=== PATIENT | female | born 1955 | race Caucasian/White ===

== ENCOUNTER → 2017-10-21 | Outpatient (CLI) | payer OTHER ==
[~2017-10-21] MED LIST: ACET-24 PO; ACET1TAB84 PO; ASPI-320 PO; BCPILLS PO; CLB200 PO; MELO-83 PO; POLY99.02 OP; RXC5 PO; TRAM-10 PO
[2017-10-21 09:37] LABS: BASO % 0.2 %; BASO ABS # 0.01 K/uL (0-0.2); EOS % 1.2 %; EOS ABS # 0.07 K/uL (0-0.5); HEMATOCRIT 40.7 % (37-47); HEMOGLOBIN 13.4 g/dL (12.0-16.0); IG# 0.01 K/uL (0.00-0.02); LYMPH % 32.6 %; LYMPH ABS # 1.84 K/uL (1.2-3.4); MEAN CELL VOLUME 93.8 fL (80-100); MEAN CORPUSCULAR HEMOGLOBIN 30.9 pg (25-34); MEAN CORPUSCULAR HGB CONC 32.9 g/dl (32-36); MEAN PLATELET VOLUME 10.4 fL (7.4-10.4); MONO % 11.9 %; MONO ABS # 0.67 K/uL (0.11-0.59); NEUT % 53.9 %; NEUT ABS # 3.05 K/uL (1.4-6.5); PLATELET COUNT 277 K/uL (130-400); RED CELL DISTRIBUTION WIDTH CV 13.1 % (11.5-14.5); RED CELL DISTRIBUTION WIDTH SD 45.3 fL (36.4-46.3); WHITE BLOOD COUNT 5.65 K/uL (4.8-10.8)
[2017-10-21 09:55] LABS: HEMOGLOBIN A1C 5.1 % (4.5-5.6)
[2017-10-21 10:23] LABS: BLOOD UREA NITROGEN 15 mg/dl (7-18); CALCIUM 8.8 mg/dl (8.5-10.1); CARBON DIOXIDE 27 mmol/L (21-32); CREATININE 0.66 mg/dl (0.60-1.20); GLUCOSE 84 mg/dl (70-99); SODIUM 140 mmol/L (136-145)
[2017-10-21 10:34] LABS: CHOLESTEROL 167 mg/dl (0-200); LDL CHOLESTEROL CALCULATED 69 mg/dl
== END | disposition home or self-care (01) ==
LOC: C.LAB1850 07:02
PROVIDERS: ATTEND Physician Assistant
DX: Z00.00 Encounter for general adult medical examination without abnormal findings (principal); D86.9 Sarcoidosis, unspecified; R73.9 Hyperglycemia, unspecified

== ENCOUNTER → 2017-10-26 | Outpatient (CLI) | payer OTHER ==
[~2017-10-26] MED LIST changes: -ACET-24 PO; -ACET1TAB84 PO; -ASPI-320 PO; -CLB200 PO; -MELO-83 PO; -RXC5 PO; -TRAM-10 PO
--- NOTE | 2017-10-26 15:31 | MAMMOGRAPHY REPORT ---
BILATERAL DIGITAL SCREENING MAMMOGRAM WITH CAD: 10/26/2017 CLINICAL HISTORY: Routine screening. Patient has no complaints. TECHNIQUE: Bilateral CC and MLO views of the breasts with and without implant displacement views were obtained. Current study was also evaluated with a Computer Aided Detection (CAD) system. COMPARISON: Comparison is made to exams dated: 05/10/2016 mammogram, 03/03/2015 mammogram, 10/12/2013 mammogram, 11/12/2010 mammogram, 11/11/2009 mammogram - [facility], and 06/07/2007. BREAST COMPOSITION: There are scattered areas of fibroglandular density in both breasts. FINDINGS: Bilateral subpectoral saline implants are intact. No suspicious mass, architectural disto rtion or cluster of suspicious microcalcifications is seen. IMPRESSION: ACR BI-RADS CATEGORY 1: NEGATIVE There is no mammographic evidence of malignancy. A 1 year screening mammogram is recommended. The pa tient will receive written notification of the results. Approximately 10% of breast cancers are not detected with mammography. A negative mammographic report should not delay biopsy if a clinically suggestive mass is present. Lidia Martinez M.D. ay/:10/26/2017 13:46:49 Hyperbaric Nurse: Jennifer Kelly RT(R)(M), [facility] letter sent: Normal 1/2 BI-RADS Code: ACR BI-RADS Category 1: Negative
== END | disposition home or self-care (01) ==
LOC: C.MAMM 12:34
PROVIDERS: ATTEND Obstetrics & Gynecology
DX: Z12.31 Encounter for screening mammogram for malignant neoplasm of breast (principal); Z98.82 Breast implant status

== ENCOUNTER 2018-02-02 05:07 | Inpatient (IN) | payer OTHER ==
[2018-01-06 11:44] VITALS: BMI 34.0
--- NOTE | 2018-01-06 12:11 | PAT Medication Instructions ---
Service Date Jan 06, 2018. Current Home Medication List Acetaminophen (Tylenol Arthritis Ext Rel), 2 TAB PO QAM Meloxicam (Meloxicam), 1 TAB PO QAM Tramadol (Ultram), 25-50 MG PO UD PRN for Pain Medication Instructions For Your Scheduled Surgery - Hold the following medications 7 days prior to surgery per surgeon: Meloxicam (Meloxicam), 1 TAB PO QAM - Take the following medications the morning of surgery with a sip of water: Acetaminophen (Tylenol Arthritis Ext Rel), 2 TAB PO QAM (okay to take up to 4 hours prior to surgery if needed) Tramadol (Ultram), 25-50 MG PO UD PRN for Pain(okay to take up to 4 hours prior to surgery if needed) - Take the following medications as scheduled the night before surgery: Tramadol (Ultram), 25-50 MG PO UD PRN for Pain (if needed) If you have any questions please call us at [phone] or [phone] or [phone]
--- NOTE | 2018-01-06 12:39 | DIAGNOSTIC IMAGING REPORT ---
CHEST 2 VIEWS ROUTINE HISTORY: 62 years-old Female PAT preoperative exam. No acute chest complaints COMPARISON: Radiographs 03/14/2007 TECHNIQUE: PA and lateral views of the chest FINDINGS: Cardiomediastinal and hilar silhouettes are within normal limits. No pneumothorax, pleural effusion, focal airspace consolidation or overt pulmonary edema. Bilateral breast augmentation devices are noted. Bones of the chest appear grossly intact. IMPRESSION: No acute process. The above report was generated using voice recognition software. It may contain grammatical, syntax or spelling errors. Electronically signed by: Ike Avila M.D. 01/06/2018 12:38 PM Dictated Date/Time: 01/06/2018 12:36 PM
[2018-01-06 12:44] LABS: BASO % 0.1 %; BASO ABS # 0.01 K/uL (0-0.2); EOS % 0.9 %; EOS ABS # 0.06 K/uL (0-0.5); HEMATOCRIT 39.1 % (37-47); HEMOGLOBIN 13.2 g/dL (12.0-16.0); IG# 0.01 K/uL (0.00-0.02); LYMPH % 37.4 %; MEAN CELL VOLUME 91.4 fL (80-100); MEAN CORPUSCULAR HEMOGLOBIN 30.8 pg (25-34); MEAN CORPUSCULAR HGB CONC 33.8 g/dl (32-36); MONO % 7.6 %; MONO ABS # 0.53 K/uL (0.11-0.59); NEUT % 53.9 %; NEUT ABS # 3.74 K/uL (1.4-6.5); PLATELET COUNT 274 K/uL (130-400); RED CELL DISTRIBUTION WIDTH CV 13.5 % (11.5-14.5); RED CELL DISTRIBUTION WIDTH SD 44.5 fL (36.4-46.3); WHITE BLOOD COUNT 6.95 K/uL (4.8-10.8)
[2018-01-06 12:59] LABS: PTT PATIENT 26.6 SECONDS (21.0-31.0)
[2018-01-06 13:25] LABS: HEMOGLOBIN A1C 5.2 % (4.5-5.6)
[2018-01-06 13:45] LABS: ALBUMIN 3.5 gm/dl (3.4-5.0); CALCIUM 9.4 mg/dl (8.5-10.1); CREATININE 0.73 mg/dl (0.60-1.20); POTASSIUM 4.5 mmol/L (3.5-5.1)
--- NOTE | 2018-01-12 12:00 | HISTORY & PHYSICAL EXAMINATION ---
DATE OF ADMISSION: 02/02/2018 CHIEF COMPLAINT: Right hip pain. HISTORY OF PRESENT ILLNESS: Ms. Soler is a 62-year-old female with a multiple year history of right hip pain. The patient rates her pain a 6/10 and complains of loss of function. She has pain with her daily activities. She has limited standing and walking tolerance. Pain is worse with weightbearing. The patient has had NSAIDS AND injections in the past without relief. She has failed conservative treatment and is scheduled for right hip replacement. PAST MEDICAL HISTORY: Osteoarthritis and sarcoidosis in remission. She denies heart disease, diabetes or DVT. PAST SURGICAL HISTORY: Breast implants in 1998. SOCIAL HISTORY: The patient denies alcohol or tobacco use. She lives in a 2-abram home. She currently works in real estate. FAMILY HISTORY: Negative for DVT. MEDICATIONS: Mobic 15 mg and tramadol 50 mg p.r.n. ALLERGIES: CODEINE. REVIEW OF SYSTEMS: See HPI. Ten other systems reviewed, all negative. PHYSICAL EXAMINATION: VITAL SIGNS: Height 5 feet 5 inches, weight 212 pounds, and BMI 32. GENERAL: This is a well-developed, well-nourished female who is alert and oriented x3. Mood and affect are appropriate. HEENT: Normocephalic, atraumatic. Mucous membranes are moist and intact. NECK: Supple without lymphadenopathy. HEART: Regular rate and rhythm without murmurs, rubs or gallops. LUNGS: Clear to auscultation without wheezes or rhonchi. ABDOMEN: Soft and nontender. Bowel sounds are equal and active. EXTREMITIES: No ecchymosis, redness or warmth. Thigh and calf are soft and nontender. She has decreased range of motion. Range of motion reproduces pain in the groin. She is neurovascularly intact with +5/5 strength. X-RAY EXAMINATION: AP and lateral views show joint space narrowing and osteophyte formation. IMPRESSION: Degenerative joint disease, right hip. PLAN: The patient will be admitted for a right total hip arthroplasty. We will plan on aspirin for DVT prophylaxis. The patient will have [facility] for home physical therapy.
[~2018-02-02] VITALS: Ht 167.6 cm; Wt 96.5 kg
[2018-02-02] VITALS (11 sets, daily range): BP systolic 112–153; BP diastolic 68–96; PULSE 70–93; TEMP 36.4–37.3; O2SAT 95–100; Ht 167.6 cm; Wt 96.5 kg
[~2018-02-02 05:07] MED LIST changes: +ACET1TAB84 PO; -BCPILLS PO; +MELO-83 PO; -POLY99.02 OP; +TRAM-10 PO
[2018-02-02] MEDS ORDERED: FAMOTIDINE 20 MG TAB PO SCH (06:00)
[2018-02-02] MEDS ORDERED: ROPIVACAINE 5MG/ML 30 ML 150 MG, BUPIVACAINE 0.5% MPF INJ 30 ML, EpINEphrine HCL INJ 0.... INFIL SCH ×8 (06:00)
[2018-02-02] MEDS ORDERED: ACETAMINOPHEN 500 MG TAB PO SCH (06:00)
[2018-02-02] MEDS ORDERED: CeleBREX 200 MG CAP PO SCH (06:00)
[2018-02-02] MEDS ORDERED: METOCLOPRAMIDE HCL 10 MG TAB PO SCH (06:00)
[2018-02-02] MEDS ORDERED: GABAPENTIN 600 MG PO SCH (06:00)
[2018-02-02] MEDS ORDERED: LACTATED RINGER'S 1000ML 500 ML IV SCH (06:00)
[2018-02-02] MEDS ORDERED: CEFAZOLIN 2000MG IV PUSH 15 ML IV SCH (06:00)
[2018-02-02] MEDS ORDERED: LACTATED RINGER'S 1000ML 1,000 ML IV SCH (06:00)
[2018-02-02] MEDS ORDERED: DEXAMETHASONE 4 MG TAB PO SCH (06:00)
[2018-02-02] MEDS ORDERED: BACITRACIN 50000 UNIT VIAL ONE (06:27)
[2018-02-02] MEDS ORDERED: POVIDONE-IODINE OP SOLN 30 ML BTL ONE (06:27)
[2018-02-02] MEDS ORDERED: ORTHO JOINT ANESTHETIC ONE (06:27)
[2018-02-02] MEDS: TRANEXAMIC ACID INJ 1,000 MG x 2 Bags IV SCH ×4 (06:29→10:33)
[2018-02-02] MEDS ORDERED: BUPIVACAINE 0.5 % 5 MG/1 ML PF 10ML VIAL ONE (06:33)
[2018-02-02] MEDS ORDERED: MIDAZOLAM HCL 1 MG/ML 2ML VIAL ONE ×2 (06:37)
[2018-02-02] MEDS ORDERED: FENTANYL CITRATE INJ 50 MCG/1 ML 2 ML VIAL ONE (06:38)
--- NOTE | 2018-02-02 06:53 | History & Physical Bridge Note ---
H&P Re-Evaluation Bridge Note: I have examined the patient, reviewed the History & Physical and in the interval since the performance of the History & Physical I have noted the following changes of clinical significance: No changes noted
[2018-02-02] MEDS ORDERED: EpHEDrine SULFATE 50MG/5ML SYR ONE (07:43)
[2018-02-02] MEDS ORDERED: PHENYLEPHRINE 100MCG/ML 5ML SYR ONE (07:43)
[2018-02-02] MEDS ORDERED: LIDOCAINE HCL 2% 2 ML VIAL (20MG/ML) ONE (07:43)
[2018-02-02] MEDS ORDERED: ONDANSETRON INJ 2 MG/ML 2 ML VIAL ONE (07:44)
[2018-02-02] MEDS ORDERED: PROPOFOL IV EMULSION 10 MG/ML 20 ML VIAL IV ONE (07:44)
--- NOTE | 2018-02-02 08:10 | [facility] Post Operative Brief Note ---
Immediate Operative Summary Operative Date Feb 02, 2018. Pre-Operative Diagnosis Right hip degenerative joint disease Post-Operative Diagnosis Right hip degenerative joint disease Procedure(s) Performed Right total hip arthroplasty, uncemented Surgeon Dr. Causey Load Blocker Surgeon(s) Edgard Watson PA-C Estimated Blood Loss 100cc Findings Consistent with Post-Op Diagnosis Specimens A: Right femoral head Drains None Anesthesia Type MAC Spinal Regional Complication(s) none Disposition Accompanied Pt To Recover: no Disposition: Recovery Room / PACU
[2018-02-02] MEDS ORDERED: METOCLOPRAMIDE HCL INJ 5 MG/ML 2 ML VIAL IV PRN (08:45)
[2018-02-02] MEDS ORDERED: ONDANSETRON INJ 2 MG/ML 2 ML VIAL IV PRN (08:45)
[2018-02-02] MEDS ORDERED: ALUMINUM/MAGNESIUM/SIMETH (MAALOX MAX) 30 ML UDC PO PRN (08:45)
[2018-02-02] MEDS ORDERED: CEFAZOLIN IV 2,000 MG in DEXTROSE 5% 50ML 50 ML IV SCH (08:45)
[2018-02-02] MEDS ORDERED: ZOLPIDEM TARTRATE 5 MG TAB PO PRN (08:45)
[2018-02-02] MEDS ORDERED: EpHEDrine SULFATE INJ 50 MG/ML AMP IV PRN (08:45)
[2018-02-02] MEDS ORDERED: MoRPHine SULFATE 4 MG/ML 1 ML CARP\\VIAL IV PRN (08:45)
[2018-02-02] MEDS ORDERED: TRAMADOL HCL 50 MG TAB PO PRN (08:45)
[2018-02-02] MEDS ORDERED: ATROPINE SULFATE 0.1 MG/ML 5ML SYR IV PRN (08:45)
[2018-02-02] MEDS ORDERED: MAGNESIUM HYDROXIDE SUSP 30 ML UDC PO PRN (08:45)
--- NOTE | 2018-02-02 09:11 | Anesthesiology Progress Note ---
Anesthesia Post Op Note Date & Time Feb 02, 2018 at 09:10 Vital Signs Pain Intensity: 0 Vital Signs Past 12 Hours Date Time Temp Pulse Resp B/P (MAP) Pulse Ox O2 Delivery O2 Flow Rate FiO2 02/02/18 09:01 137/67 02/02/18 08:58 88 15 96 02/02/18 08:58 91 15 02/02/18 08:56 106/66 02/02/18 08:53 97 16 02/02/18 08:53 99 16 98 02/02/18 08:51 127/63 02/02/18 08:48 97 21 02/02/18 08:48 98 21 99 02/02/18 08:46 107/60 02/02/18 08:43 89 18 118/67 99 02/02/18 08:43 93 18 02/02/18 08:43 36.6 104 16 118/67 98 Oxymask 10 02/02/18 05:46 37.3 75 18 144/96 98 Room Air Notes Mental Status: alert / awake / arousable, participated in evaluation Pt Amnestic to Procedure: Yes Nausea / Vomiting: adequately controlled Pain: adequately controlled Airway Patency, RR, SpO2: stable & adequate BP & HR: stable & adequate Hydration State: stable & adequate Neuraxial Anesthesia: was administered, sensory block is resolving Anesthetic Complications: no major complications apparent
--- NOTE | 2018-02-02 09:59 | DIAGNOSTIC IMAGING REPORT ---
R PELVIS/UNILATERAL HIP 1 VIEW CLINICAL HISTORY: IN PACU - A/P PELVIS and LATERAL HIP INCLUDING ALL OF IMPLANT postoperative evaluation COMPARISON: None. DISCUSSION: Anatomic alignment post right total hip arthroplasty. Good contact between prosthetic and underlying bone. Surgical drains are in position. Expected soft tissue postoperative change. IMPRESSION: Anatomic alignment posttotal right hip arthroplasty. The above report was generated using voice recognition software. It may contain grammatical, syntax or spelling errors. Electronically signed by: Sacha Rosario M.D. 02/02/2018 9:58 AM Dictated Date/Time: 02/02/2018 9:58 AM
[2018-02-02] MEDS: DOCUSATE SODIUM 100 MG CAP PO SCH ×2 (10:41→21:12)
[2018-02-02] MEDS: D5W AND 1/2NSS + 20MEQ KCL 1,000 ML IV SCH ×2 (10:42→21:14)
[2018-02-02] MEDS: MULTIVITAMIN TAB PO SCH (10:42)
[2018-02-02] MEDS: PANTOprazole SOD 40 MG TAB PO SCH (10:42)
[2018-02-02] MEDS: OXYCODONE HCL IR 5 MG TAB (IMMEDIATE RELEASE) PO PRN ×2 (10:58→21:55)
[2018-02-02] MEDS: FERROUS GLUCONATE 324 MG TAB PO SCH ×2 (11:39→18:25)
[2018-02-02] MEDS: KETOROLAC TROMETHAMINE 30 MG/ML VIAL IV. SCH ×2 (11:40→18:25)
--- NOTE | 2018-02-02 12:43 | OPERATIVE REPORT ---
DATE OF OPERATION: 02/02/2018 PREOPERATIVE DIAGNOSIS: Osteoarthritis, right hip. POSTOPERATIVE DIAGNOSIS: Osteoarthritis, right hip. PROCEDURE: Right total hip arthroplasty. SURGEON: Cameron Causey MD CLIENT ADVOCATE: Edgard Watson PA-C. ANESTHESIA: COMPLICATIONS: None. IMPLANTS: Acetabular reamer used 52, acetabular shell 52, 36 inner diameter, femoral head 0+36 ceramic, femoral stem 3. PROCEDURE: Following induction of adequate anesthesia, the patient was placed in left lateral decubitus position and right Norah-Langenbeck incision was made. Subcutaneous tissue was sharply dissected. Electrocautery used for hemostasis. The fascia was incised throughout the length of the wound and a cooper scissor placed beneath the short external rotators. The pyriformis was tagged with #1 Vicryl. The short external rotators were divided from the posterior aspect of the femur using electrocautery. These were swept posteriorly. A T-capsulotomy incision was made and the hip was dislocated using a combination of flexion, adduction, and internal rotation. Exposure of the femoral neck with old-style Hohmann and a blunt Hohmann was carried out and a femoral rasp was utilized as a guide for making the appropriate level femoral neck cut. This bone fragment was removed and reserved on the back table. Next, attention was turned to the acetabulum where bone hook was used to retract the femur while the offset retractors were placed anterior and posteriorly. A double-angled Hohmann was placed in superior and anterior position exposing the acetabulum nicely. Acetabular labrum as well as posterior capsule elements were removed using a long knife and a long pickup. Fovea centralis was cleared of all soft tissue. Sequential reamings were carried up to a 52 and decision was made to proceed with impaction of a 36 inner diameter trabecular metal cup. This was impacted and held using a single 35 mm bone screw. The acetabular liner was placed with 15 of elevated posterior wall in the superior and posterior position. Next, attention was turned to the femoral portion of the case where a Bovie and pickup was used to further clear short external rotators from their insertion on the femur. Box osteotome was used to gain access to the femoral canal and the T-handled rasp and a rattail rasp were used to further open and lateral the canal. Sequentially raspings were carried up to a 3, which gave good fit and fill of the proximal femur. A trial reduction was carried out and a 132 degree femoral neck component was chosen as the size to be used. A 0+36 mm femoral head was impacted into position, +0 head was utilized. The trial reduction was stable in all degrees of rotation with no [id number] impingement. The hip was dislocated. The trial components were removed and the final femoral stem, neck, and femoral head combination were assembled on the back table and impacted into position. Hip was relocated. Range of motion checked once again successful and the wound was irrigated. The pyriformis repaired to the greater trochanter using #1 Vicryl [id number] suture. A Hemovac drain was placed and the fascia was closed using #1 Vicryl, subcutaneous tissue was closed using 0 Dexon, and skin was closed with manoj. Sterile dressing of Adaptic, 4 x 4's, ABDs, and foam tape was applied. The patient tolerated the procedure well. Due to the complex nature of the procedure, the entire surgery was performed with the operational assistance of Edgard Watson PA-C. The surgical supply assistant, under direct supervision, was involved in the actual performance of all aspects of the surgical procedure including hemostasis, tissue retraction and incision, instrument management, patient positioning, and wound closure. I attest to the content of the Intraoperative Record and any orders documented therein. Any exception s are noted below.
[2018-02-02] MEDS: ACETAMINOPHEN 500 MG TAB PO SCH ×2 (13:37→21:13)
[2018-02-02] MEDS: CEFAZOLIN IV 2,000 MG in SYRINGE 0 ML IV SCH ×2 (13:37→22:00)
[2018-02-02] MEDS: ASPIRIN 81 MG ECTAB PO SCH (21:12)
[2018-02-03] MEDS: KETOROLAC TROMETHAMINE 30 MG/ML VIAL IV. SCH ×2 (00:29→06:10)
[2018-02-03 03:37] VITALS: BP 108/68; PULSE 73; TEMP 36.4; O2SAT 99
[2018-02-03 05:24] VITALS: O2SAT 99
[2018-02-03 06:07] LABS: HEMATOCRIT 32.7 % (37-47); HEMOGLOBIN 11.1 g/dL (12.0-16.0); IG# 0.05 K/uL (0.00-0.02); LYMPH % 10.7 %; LYMPH ABS # 1.56 K/uL (1.2-3.4); MEAN CELL VOLUME 89.1 fL (80-100); MEAN CORPUSCULAR HEMOGLOBIN 30.2 pg (25-34); MEAN CORPUSCULAR HGB CONC 33.9 g/dl (32-36); MEAN PLATELET VOLUME 9.7 fL (7.4-10.4); MONO % 8.4 %; MONO ABS # 1.22 K/uL (0.11-0.59); NEUT % 80.6 %; NEUT ABS # 11.74 K/uL (1.4-6.5); PLATELET COUNT 319 K/uL (130-400); RED CELL DISTRIBUTION WIDTH SD 42.6 fL (36.4-46.3); WHITE BLOOD COUNT 14.57 K/uL (4.8-10.8)
[2018-02-03] MEDS: ACETAMINOPHEN 500 MG TAB PO SCH ×3 (06:09→21:10)
[2018-02-03] MEDS: D5W AND 1/2NSS + 20MEQ KCL 1,000 ML IV SCH (06:13)
[2018-02-03 06:42] LABS: CREATININE 0.95 mg/dl (0.60-1.20)
[2018-02-03 06:43] LABS: CALCIUM 8.9 mg/dl (8.5-10.1); POTASSIUM 4.1 mmol/L (3.5-5.1)
[2018-02-03 07:05] VITALS: BP 104/68; PULSE 76; TEMP 36.6; O2SAT 100
[2018-02-03] MEDS ORDERED: DEXAMETHASONE INJ 10 MG in SYRINGE 0 ML IV ONE (07:30)
[2018-02-03] MEDS: FERROUS GLUCONATE 324 MG TAB PO SCH ×3 (07:33→17:40)
--- NOTE | 2018-02-03 07:42 | Orthopedic Progress Note ---
Orthopedic Progress Note Date of Service Feb 03, 2018. Subjective Post OP Day: 1 Reports: feeling well Objective calves soft nontender, N/V intact, dressing C/D/I (Hemovac d/c'd), toes mobile Date Time Temp Pulse Resp B/P (MAP) Pulse Ox O2 Delivery O2 Flow Rate FiO2 02/03/18 05:24 99 Room Air 1.0 98 02/03/18 03:37 36.4 73 16 108/68 (81) 99 Room Air 02/02/18 23:40 98 Room Air 1.0 98 02/02/18 23:02 36.4 70 18 113/71 (85) 98 Room Air 02/02/18 19:39 36.4 79 18 116/73 (87) 97 Room Air 02/02/18 16:00 80 112/68 (83) 02/02/18 16:00 Room Air 02/02/18 15:46 36.4 79 18 100 Room Air 02/02/18 13:02 93 16 147/78 (101) 95 Nasal Cannula 1.0 02/02/18 12:05 85 16 153/78 (103) 97 Room Air 02/02/18 11:01 81 16 120/74 (89) 99 Nasal Cannula 1.0 02/02/18 10:35 80 18 125/75 (92) 98 Nasal Cannula 1.0 02/02/18 10:05 36.8 84 18 123/79 (94) 98 Nasal Cannula 2.0 02/02/18 10:05 98 Nasal Cannula 2.0 02/02/18 10:05 Nasal Cannula 2.0 98 02/02/18 09:33 90 17 96 02/02/18 09:33 93 17 02/02/18 09:31 124/64 02/02/18 09:28 91 16 94 02/02/18 09:28 91 16 02/02/18 09:27 84 17 98 02/02/18 09:27 83 17 02/02/18 09:26 123/64 02/02/18 09:22 86 16 02/02/18 09:22 86 16 98 02/02/18 09:21 125/59 02/02/18 09:17 89 15 98 02/02/18 09:17 90 15 02/02/18 09:16 121/61 4/19/18 09:13 91 16 02/02/18 09:13 92 16 99 02/02/18 09:11 122/70 02/02/18 09:10 36.8 98 Nasal Cannula 2 02/02/18 09:08 89 16 02/02/18 09:08 90 16 98 02/02/18 09:07 87 14 97 02/02/18 09:07 86 14 02/02/18 09:06 115/66 02/02/18 09:02 96 16 98 02/02/18 09:02 96 16 02/02/18 09:01 137/67 02/02/18 08:58 88 15 96 02/02/18 08:58 91 15 02/02/18 08:56 106/66 02/02/18 08:53 97 16 02/02/18 08:53 99 16 98 02/02/18 08:51 127/63 02/02/18 08:48 97 21 02/02/18 08:48 98 21 99 02/02/18 08:46 107/60 02/02/18 08:43 89 18 118/67 99 02/02/18 08:43 93 18 02/02/18 08:43 36.6 104 16 118/67 98 Oxymask 10 Laboratory Results 24 Hours: Test 02/03/18 05:47 White Blood Count 14.57 K/uL Red Blood Count 3.67 M/uL Hemoglobin 11.1 g/dL Hematocrit 32.7 % Mean Corpuscular Volume 89.1 fL Mean Corpuscular Hemoglobin 30.2 pg Mean Corpuscular Hemoglobin Concent 33.9 g/dl Platelet Count 319 K/uL Mean Platelet Volume 9.7 fL Neutrophils (%) (Auto) 80.6 % Lymphocytes (%) (Auto) 10.7 % Monocytes (%) (Auto) 8.4 % Eosinophils (%) (Auto) 0.0 % Basophils (%) (Auto) 0.0 % Neutrophils # (Auto) 11.74 K/uL Lymphocytes # (Auto) 1.56 K/uL Monocytes # (Auto) 1.22 K/uL Eosinophils # (Auto) 0.00 K/uL Basophils # (Auto) 0.00 K/uL Assessment & Plan Assessment: 62 yo female stable POD #1 s/p right BHARATH Plan: 1. Med management 2. DVT prophylaxis- ASA, SCDs 3. PT/OT 4. D/C planning- home w/ HH
--- NOTE | 2018-02-03 07:43 | Discharge Instructions ---
Discharge Instructions Date of Service Feb 03, 2018. Admission Reason for Admission: Right Hip Osteoarthritis Discharge Discharge Diagnosis / Problem: Right hip arthritis Discharge Goals Goal(s): Decrease discomfort, Improve function Activity Recommendations Activity Limitations: as noted below Weightbearing Status: Right weightbearing (as tolerated) . Instructions / Follow-Up Instructions / Follow-Up ACTIVITY RECOMMENDATIONS: SELF CARE INSTRUCTIONS AFTER TOTAL HIP REPLACEMENT Until the incision and soft tissues around your hip have healed, there is a possibility that the hip prosthesis could dislocate. A. Observe the following precautions to prevent dislocation: 1. Don't bend your hip greater than 90 degrees. 2. Avoid crossing your legs or ankles while standing or lying. 3. Sit with your feet placed 6 inches apart. 4. When sitting, keep your knees below your hips. Sit on a firm surface, avoid deep, soft chairs and couches. Use an elevated toilet seat in the bathroom. 5. Don't bend over at the waist. Use a long handled shoehorn and a sock aid to help you put on your shoes and socks. A risk modeler can help you poultry picker objects that are too high or too low to reach. 6. Keep car riding to a minimum for at least one month after surgery. B. Your balance may be shaky for a while. Use crutches or a walker until directed by your doctor. C. Use hand rails when walking on stairs. D. Wear low heeled shoes with non-slip soles. E. Be sure that your floors are free of things that could trip you - throw rugs , electrical cords, small objects. Avoid wet and waxed floors, especially with crutches and canes. F. Try to walk several times a day with rest periods between. G. Continue with all the exercises taught to you in the hospital. Again, make walking a part of your daily routine. SPECIAL CARE INSTRUCTIONS: VERY IMPORTANT TO READ AND REVIEW A. You may still be at risk for phlebitis and blood clots. 1. Wear surgical stockings (OFELIA hose) for 2 weeks after surgery to improve circulation and reduce swelling. 2. Take Aspirin 81mg twice daily for 4 weeks or as directed by your doctor. This is your blood thinner. 3. High risk patients may be prescribed a stronger blood thinner if necessary. 4. If you are on Coumadin normally, your family doctor/retail grocer should monitor your blood work. Expect a phone call the day of or the day after bloodwork is drawn to adjust your dosage. B. You must take antibiotics before having dental work, bladder, bowel and other surgery. Your doctor will provide you with a permanent card to carry describing precautions. C. Call [facility] if you have a fever, redness or swelling around the incision, cloudy drainage from incision, or sudden increase in pain in your hip, not relieved by your regular pain medication. D. Please call the office at if you have any concerns or questions about your operation or recovery. * YOU MAY SHOWER, NO TUB BATHS UNTIL CLEARED BY YOUR DOCTOR. * WEAR OFELIA HOSE 20 HOURS PER DAY FOR 2 WEEKS. * YOU SHOULD USE A WALKER OR CRUTCHES FOR 2-4 WEEKS. THIS WILL HELP PREVENT STRAIN ON YOUR HIP MUSCLE AND ALLOW IT TO HEAL PROPERLY. YOU MAY WEAN TO A CANE TOLERATED. * MOST PATIENTS WILL HAVE HOME NURSING FOR THERAPY. IF YOU DECIDE TO DO OUTPATIENT PHYSICAL THERAPY, PLEASE SCHEDULE THIS 3 TIMES PER WEEK. Prevena- This is a large suction dressing covering your incision. This will help pull any excess drainage from the wound and allow your incision to heal properly. You may shower with this if you can keep the unit outside of the shower. If any bleeding or leakage is noted please call your doctor's office. This will remain on your incision for 7 days and then should be removed. This can be done yourself or by the home nursing staff if applicable. The entire unit is disposable once removed. Once removed, keep incision clean and dry. If redness or drainage is noted, please call your surgeon. FOLLOW UP VISIT: If appointment is not already scheduled: Please call [facility] to make a follow-up appointment for 2 weeks after your surgery at . Current Hospital Diet Patient's current hospital diet: Regular Diet Discharge Diet Recommended Diet: Regular Diet Procedures Procedures Performed: Right total hip arthroplasty, uncemented Pending Studies Studies pending at discharge: no Laboratory Results Hemoglobin A1c Test 01/06/18 12:15 Range/Units Estimated Average Glucose 103 mg/dl Hemoglobin A1c 5.2 4.5-5.6 % Medical Emergencies . Who to Call and When: Medical Emergencies: If at any time you feel your situation is an emergency, please call 911 immediately. . Non-Emergent Contact Non-Emergency issues call your: Surgeon Call Non-Emergent contact if: temperature is above 101.5, your pain is not controlled, wound has increased drainage, wound has increased redness . "Provider Documentation" section prepared by Edgard Watson PA-C. . [place] Drug Monitoring Program Search Results: patient reviewed within database, no issues identified
--- NOTE | 2018-02-03 08:04 | Anesthesiology Progress Note ---
Anesthesia Post Op Note Date & Time Feb 03, 2018 at 08:03 Vital Signs Pain Intensity: 0.0 Vital Signs Past 12 Hours Date Time Temp Pulse Resp B/P (MAP) Pulse Ox O2 Delivery O2 Flow Rate FiO2 02/03/18 07:05 36.6 76 16 104/68 (80) 100 Room Air 02/03/18 05:24 99 Room Air 1.0 98 02/03/18 03:37 36.4 73 16 108/68 (81) 99 Room Air 02/02/18 23:40 98 Room Air 1.0 98 02/02/18 23:02 36.4 70 18 113/71 (85) 98 Room Air Notes Mental Status: alert / awake / arousable, participated in evaluation Pt Amnestic to Procedure: Yes Nausea / Vomiting: adequately controlled Pain: adequately controlled Airway Patency, RR, SpO2: stable & adequate BP & HR: stable & adequate Hydration State: stable & adequate Anesthetic Complications: no major complications apparent
--- NOTE | 2018-02-03 08:05 | Anesthesiology Progress Note ---
Anesthesia Post Op Note Date & Time Feb 03, 2018 at 08:04 Vital Signs Pain Intensity: 0.0 Vital Signs Past 12 Hours Date Time Temp Pulse Resp B/P (MAP) Pulse Ox O2 Delivery O2 Flow Rate FiO2 02/03/18 07:05 36.6 76 16 104/68 (80) 100 Room Air 02/03/18 05:24 99 Room Air 1.0 98 02/03/18 03:37 36.4 73 16 108/68 (81) 99 Room Air 02/02/18 23:40 98 Room Air 1.0 98 02/02/18 23:02 36.4 70 18 113/71 (85) 98 Room Air Notes Mental Status: alert / awake / arousable, participated in evaluation Pt Amnestic to Procedure: Yes Nausea / Vomiting: adequately controlled Pain: adequately controlled Airway Patency, RR, SpO2: stable & adequate BP & HR: stable & adequate Hydration State: stable & adequate Anesthetic Complications: no major complications apparent
[2018-02-03] MEDS: MULTIVITAMIN TAB PO SCH (09:05)
[2018-02-03] MEDS: ASPIRIN 81 MG ECTAB PO SCH ×2 (09:05→21:10)
[2018-02-03] MEDS: DOCUSATE SODIUM 100 MG CAP PO SCH ×2 (09:05→21:09)
[2018-02-03] MEDS: PANTOprazole SOD 40 MG TAB PO SCH (09:05)
[2018-02-03 11:50] VITALS: BP 139/79; PULSE 74; TEMP 36.6; O2SAT 97
[2018-02-03] MEDS: OXYCODONE HCL IR 5 MG TAB (IMMEDIATE RELEASE) PO PRN (14:21)
[2018-02-03 15:10] VITALS: BP 121/72; PULSE 78; TEMP 36.9; O2SAT 99
[2018-02-03] MEDS: CeleBREX 200 MG CAP PO SCH (21:10)
[2018-02-03 23:10] VITALS: BP 142/75; PULSE 77; TEMP 36.6; O2SAT 99
[2018-02-04] MEDS: OXYCODONE HCL IR 5 MG TAB (IMMEDIATE RELEASE) PO PRN ×2 (00:50→08:18)
[2018-02-04] MEDS: ACETAMINOPHEN 500 MG TAB PO SCH (06:12)
[2018-02-04 06:26] VITALS: BP 133/77; PULSE 78; TEMP 36.4; O2SAT 98
--- NOTE | 2018-02-04 08:38 | Orthopedic Progress Note ---
Orthopedic Progress Note Date of Service Feb 04, 2018. Subjective Post OP Day: 2 Reports: feeling well, Denies: complaints Additional Notes: States she's ready for dc. No new complaints. Objective calves soft nontender, N/V intact, hip located, dressing C/D/I (Prevena), A&O x3 , toes mobile Date Time Temp Pulse Resp B/P (MAP) Pulse Ox O2 Delivery O2 Flow Rate FiO2 02/04/18 06:26 36.4 78 15 133/77 (95) 98 Room Air 02/04/18 00:45 Room Air 02/03/18 23:10 36.6 77 15 142/75 (97) 99 Room Air 02/03/18 15:15 Room Air 02/03/18 15:10 36.9 78 16 121/72 (88) 99 Room Air 02/03/18 11:50 36.6 74 16 139/79 (99) 97 Room Air Assessment & Plan Assessment: 62 yo female stable POD #2 s/p right BHARATH Plan: Progressing with PT Plan for dc to home today Inhouse Planning Pain Management: Celebrex, Ultram, Dilaudid, PO Tylenol, Oxy IR DVT Prophylaxis: TEDs, SCDs, ASA Discharge Planning Discharge Planning: home with home health Pain Management: Celebrex, PO Tylenol, Oxy IR DVT Prophylaxis: TEDs, ASA Therapy: Physical Therapy
[2018-02-04] MEDS ORDERED: CLB200 PO (08:43)
[2018-02-04] MEDS ORDERED: ACET-24 PO (08:43)
[2018-02-04] MEDS ORDERED: ASPI-320 PO (08:43)
[2018-02-04] MEDS ORDERED: RXC5 PO (08:43)
[2018-02-04] MEDS: FERROUS GLUCONATE 324 MG TAB PO SCH (08:51)
[2018-02-04] MEDS: ASPIRIN 81 MG ECTAB PO SCH (08:52)
[2018-02-04] MEDS: DOCUSATE SODIUM 100 MG CAP PO SCH (08:52)
[2018-02-04] MEDS: CeleBREX 200 MG CAP PO SCH (08:52)
[2018-02-04] MEDS: MULTIVITAMIN TAB PO SCH (08:53)
[2018-02-04] MEDS: PANTOprazole SOD 40 MG TAB PO SCH (08:54)
[2018-02-04 09:12] VITALS: BP 133/77; PULSE 78; TEMP 36.4; O2SAT 98
== END 2018-02-04 09:57 | disposition home health service (06) | DRG 470 ==
LOC: C.ACU 05:07 → C.3E 08:49 → ENRESERV 08:59
PROC: 0SR903Z Replacement of Right Hip Joint with Ceramic Synthetic Substitute, Open Approach (ICD-10-PCS; principal; 2018-02-02 07:00)
DX: M16.11 Unilateral primary osteoarthritis, right hip (principal); Z79.1 Long term (current) use of non-steroidal anti-inflammatories (NSAID); Z79.899 Other long term (current) drug therapy; Z88.5 Allergy status to narcotic agent